=== PATIENT | female | born 1945 | race Caucasian/White ===

== ENCOUNTER → 2017-02-14 | Outpatient (CLI) | payer MEDICARE ==
[~2017-02-14] MED LIST: ASPIRIN PO; CALTRATE PLUS T1 TAB PO; KLONOPIN PO; LIPITOR PO; LISINOPRIL PO; MAXIDE PO; SYNTHROID PO
--- NOTE | ~2017-02-14 | CT6 ---
[facility] A Service of [facility] RADIOLOGY TEXT RESULTS PATIENT: OLEKSANDR PEREZ [facility] UNIT #: [id number] AGE: [address]: Ortiz Silva MD SEX: F ORDER DR: [id number] [facility] [address] [place], [place] [address] [id number] O MR#: [id number] Acc #: [id number] NAME: OLEKSANDR PEREZ : 1945 SEX: F STUDY DATE/TIME: 02/14/2017 14:36 UNIT: [facility] ROOM: STUDY DESCRIPTION: CT Abdomen WWo Cont Attending Physician: Ortiz Silva M.D. Referring Physician: Ortiz Silva M.D. Ordering Physician: Ortiz Silva M.D. Primary Care Physician: Ortiz Silva M.D. MEDICAL IMAGING REPORT This report is preliminary unless electronic signature is present EXAM CT of the abdomen with and without contrast INDICATION Microscopic hematuria. Lower quadrant spasms for years, worse over the last [address] of the abdomen was performed before and after the administration of IV contrast using multiphase protocol. Coronal and sagittal reformatted images were obtained. This CT exam was performed with one or more of the following radiation dose reduction techniques: automatic exposure control, adjustment of mA and/or kV according to patient size, and iterative reconstruction. COMPARISON STUDIES There are no comparison studies available. FINDINGS There is some mild interstitial thickening and ground glass change in the lung bases, which is nonspecific. It may represent some mild edema. There is a micronodule in the right middle lobe measuring 4 mm. This can be followed in 6-12 months to document stability. There has been a previous cholecystectomy. The liver is unremarkable. The spleen is unremarkable. Noncontrast evaluation of the kidneys demonstrates vascular calcifications. No definite renal stone, however. There is no evidence for solid renal mass. There is no hydronephrosis. There is mild ectasia of the infrarenal abdominal aorta. The adrenal glands are unremarkable. The pancreas is unremarkable. Also noted on the arterial phase is STS. 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 Correlate for any claudication symptoms. The bone windows are unremarkable. IMPRESSION 1. There is no definite renal stone. There are some renal vascular calcifications present. 2. No evidence for renal mass or hydronephrosis. 3. Ectasia of the infrarenal abdominal aorta. 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 Correlate with any symptoms of claudication. Vascular surgery consultation can also be considered. 4. Tiny 4 mm micronodule in the base of the right middle lobe is nonspecific and could be followed in 6-12 months to document stability given the absence of any prior studies. Dictated by... Keyshawn Mayen M.D. THIS IS AN ELECTRONICALLY VERIFIED REPORT Keyshawn Mayen M.D. at 02/15/2017 7:22 PM Fran TD: 02/15/2017 17:34 JOB #: [id number] MEDICAL IMAGING REPORT Page 1 of 1 COPY
[2017-02-14 15:21] LABS: POC - CREATININE 0.75 mg/dL (0.44-1.03); POC - GFR >60.0 mL/min (>60)
== END | disposition home or self-care (01) ==
LOC: CCAT 13:00
PROVIDERS: Internal Medicine
DX: R31.29 Other microscopic hematuria (principal); I70.1 Atherosclerosis of renal artery; I77.811 Abdominal aortic ectasia; I74.8 Embolism and thrombosis of other arteries; R91.1 Solitary pulmonary nodule
CPT/HCPCS: 74170; 82565; Q9967

== ENCOUNTER → 2017-03-29 | Outpatient (CLI) | payer MEDICARE ==
--- NOTE | ~2017-03-29 | US37 ---
[facility] A Service of [facility] RADIOLOGY TEXT RESULTS PATIENT: OLEKSANDR PEREZ LOCATION: [place] : 44 UNIT #: [id number] AGE: [address]: Leti Chong MD SEX: F ORDER DR: [id number] [facility] [address] [place], [place] [address] [id number] O MR#: [id number] [facility] #: [id number] NAME: OLEKSANDR PEREZ : 1945 SEX: F STUDY DATE/TIME: 03/29/2017 16:24 UNIT: US ROOM: STUDY DESCRIPTION: US Carotid W/Doppler Bilateral Attending Physician: Leti Chong M.D. Referring Physician: Leti Chong M.D. Ordering Physician: Leti Chong M.D. Primary Care Physician: Ortiz Silva M.D. MEDICAL IMAGING REPORT This report is preliminary unless electronic signature is present EXAM Bilateral carotid duplex, 03/29/2017 HISTORY Carotid bruit. FINDINGS There is patent flow seen throughout the right common carotid, internal carotid, and external carotid arteries. There is some very minimal diffuse, homogeneous, plaque seen in the right common carotid artery. At the right carotid bifurcation, there is some more heterogeneous, irregular-appearing plaque. The right common carotid artery peak velocity is 78 cm/sec. The right internal carotid artery peak systolic/end-diastolic velocities are: Proximal 53/11 cm/sec, mid 60/11 cm/sec, distal 59/14 cm/sec. The right external carotid artery peak velocity is 79 cm/sec, and vertebral artery 39 cm/sec. The right ICA/CCA ratio is 0.8 There is patent flow seen throughout the left common carotid, internal carotid, and external carotid arteries. The left common carotid artery at its proximal aspect has a large focal heterogeneous and echogenic plaque. The left carotid bifurcation also has a heterogeneous and irregular plaque. The left common carotid artery peak velocity is 82 cm/sec. The left internal carotid artery peak systolic/end-diastolic velocities are: Proximal 81/10 cm/sec, mid 86/23 cm/sec, distal 91/16 cm/sec. The left external carotid artery has a peak velocity of 100 cm/sec and vertebral artery 28 cm/sec. The left ICA/CCA ratio is 1.1. IMPRESSION 1. The right carotid artery has mild atherosclerosis, which is not hemodynamically significant by duplex criteria (less than 50%). 2. The left carotid artery has mild atherosclerosis, which is not STS. [facility] A Service of [facility] RADIOLOGY TEXT RESULTS PATIENT: OLEKSANDR PEREZ LOCATION: [facility] #: [id number] : 43 UNIT #: [id number] AGE: [address]: Leti Chong MD SEX: F ORDER DR: hemodynamically significant by duplex criteria (less than 50%). 3. Vertebral flow is antegrade bilaterally. Dictated by... Lexx Larsen M.D. THIS IS AN ELECTRONICALLY VERIFIED REPORT Lexx Larsen M.D. at 04/03/2017 7:12 AM Nrei TD: 03/29/2017 23:21 JOB #: [id number] MEDICAL IMAGING REPORT Page 1 of 1 COPY
[2017-03-29 17:45] LABS: POC - CREATININE 1.09 mg/dL (0.44-1.03)
== END | disposition home or self-care (01) ==
LOC: CGUS 15:09
PROVIDERS: Surgery Vascular Surgery
DX: R09.89 Other specified symptoms and signs involving the circulatory and respiratory systems (principal); I65.23 Occlusion and stenosis of bilateral carotid arteries; I74.10 Embolism and thrombosis of unspecified parts of aorta; E78.00 Pure hypercholesterolemia, unspecified; I10 Essential (primary) hypertension
CPT/HCPCS: 82565; 93880

== ENCOUNTER → 2017-04-02 | Outpatient (CLI) | payer MEDICARE ==
--- NOTE | ~2017-04-02 | CT20 ---
[facility] A Service of [facility] RADIOLOGY TEXT RESULTS PATIENT: OLEKSANDR PEREZ LOCATION: [facility] : 43 UNIT #: [id number] AGE: [address]: Leti Chong MD SEX: F ORDER DR: [id number] [facility] [address] [place], [place] [address] [id number] O MR#: [id number] [facility] #: [id number] NAME: OLEKSANDR PEREZ : 1945 SEX: F STUDY DATE/TIME: 04/02/2017 12:03 UNIT: [facility] ROOM: STUDY DESCRIPTION: CT Angio Lower Ext Cody Attending Physician: Leti Chong M.D. Referring Physician: Leti Chong M.D. Ordering Physician: Leti Chong M.D. Primary Care Physician: Ortiz Silva M.D. MEDICAL IMAGING REPORT This report is preliminary unless electronic signature is present EXAM CT angiogram of the abdomen and pelvis with bilateral lower extremity runoff. INDICATION Bilateral leg numbness and tingling for one year. This is more pronounced on the right. TECHNIQUE Axial CT images were obtained from the dome of the diaphragm through the lower extremities following the administration of intravenous contrast material. Following this, 3-D reformatted images were obtained. This CT exam was performed with one or more of the following radiation dose reduction techniques: automatic exposure control, adjustment of mA and/or kV according to patient size, and iterative reconstruction. FINDINGS Background emphysematous changes are seen with some mild fibrotic changes also noted at the lung bases. Ulcerated plaque is seen within the descending thoracic aorta. There are also coronary artery calcifications. This patient has some mild narrowing at the origin of the celiac axis and some additional mild narrowing is noted at the origin of the superior mesenteric artery. Both vessels remain patent. There are single renal arteries bilaterally with some narrowing suspected at the origin of the left renal artery, although again favored to be relatively mild. Atherosclerotic plaque becomes more confluent within the infrarenal segment before there is an aortic occlusion seen just distal to the origin of the inferior mesenteric artery. The common iliac arteries are occluded bilaterally. Patient does have reconstitution of the internal iliac arteries bilaterally. There is also reconstitution of the external iliac arteries bilaterally but they STS. [facility] A Service of [facility] RADIOLOGY TEXT RESULTS PATIENT: OLEKSANDR PEREZ LOCATION: [facility] : 43 UNIT #: [id number] AGE: [address]: Leti Chong MD SEX: F ORDER DR: are extremely small in caliber. Patient has some prominent collateral flow from the epigastric system. Eccentric calcified plaque is seen within the common femoral arteries bilaterally. Right profunda femoris artery is patent. There is probably some mild multifocal disease involving the proximal right superficial femoral artery but it does remain patent, again, overall is fairly small in caliber. Additional eccentric plaque is seen within the right popliteal artery, although it does appear to remain patent. There is three-vessel runoff to the right foot. Some additional eccentric plaque is seen involving the proximal left superficial femoral artery, again, which is small in caliber. It does remain patent, as is the left popliteal artery which also demonstrates some plaque, and there is three-vessel runoff to the left foot. There is some reflux of contrast material seen into the hepatic veins which can be associated with right-sided heart failure. Liver is unremarkable as are the spleen and proximal small bowel, adrenal glands appear within normal limits, as is the pancreas. There is some dilatation of the common bile duct measuring up to about 1.2 cm. Correlation with liver function tests is suggested. There is some areas of cortical thinning seen within the left kidney which appears relatively atrophic when compared to the contralateral side, likely reflecting sequela of prior insults. No adenopathy is seen within the abdomen. Uterus is surgically absent. No free fluid or adenopathy is identified within the pelvis. No aggressive osseous abnormalities are seen. IMPRESSION 1. 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 The patient does have reconstitution of both the internal and external iliac arteries bilaterally but they are small in caliber. 2. The patient probably does have some mild multifocal disease involving the proximal right superficial femoral artery. I think overall it is small in caliber, although it remains patent and the patient is noted to have three-vessel runoff to the right foot. 3. As on the contralateral side, there is atherosclerotic involvement in a multifocal distribution involving the proximal left superficial femoral artery. Again, it remains patent and there is three-vessel runoff to the left foot. 4. Patient is noted to have some atherosclerotic involvement seen at the origins of the visceral vessels resulting in mild narrowing at the origins of the celiac axis and superior mesenteric artery. There are single renal arteries bilaterally, both of which are favored to have some jryn-st-wirwdkjf disease, left greater than right. Left kidney also appears somewhat atrophic when compared to the right side which may reflect the sequela of prior insults. [facility] A Service of [facility] RADIOLOGY TEXT RESULTS PATIENT: OLEKSANDR PEREZ LOCATION: [facility] : 43 UNIT #: [id number] AGE: [address]: Leti Chong MD SEX: F ORDER DR: 5. Patient does have some dilatation of the common bile duct measuring up to 1.2 cm. Potentially, this is postcholecystectomy in nature. Certainly correlation with liver function tests is suggested. Please see the body of the report for any other additional incidental findings. Dictated by... Cheryle Rivera M.D. THIS IS AN ELECTRONICALLY VERIFIED REPORT Cheryle Rivera M.D. at 04/03/2017 4:44 PM AFF/hunter TD: 04/03/2017 15:17 JOB #: [id number] MEDICAL IMAGING REPORT Page 1 of 1 COPY
[2017-04-02 11:31] LABS: POC - CREATININE 1.19 mg/dL (0.44-1.03)
== END | disposition home or self-care (01) ==
LOC: CCAT 09:47
PROVIDERS: Surgery Vascular Surgery
DX: R20.0 Anesthesia of skin (principal); R20.2 Paresthesia of skin; I74.10 Embolism and thrombosis of unspecified parts of aorta; E78.00 Pure hypercholesterolemia, unspecified; I10 Essential (primary) hypertension; R09.89 Other specified symptoms and signs involving the circulatory and respiratory systems; I70.202 Unspecified atherosclerosis of native arteries of extremities, left leg; I77.1 Stricture of artery; K83.8 Other specified diseases of biliary tract; Z90.49 Acquired absence of other specified parts of digestive tract
CPT/HCPCS: 73706; 74174; 82565; 96360; 96361; Q9967

== ENCOUNTER → 2017-05-10 | Outpatient (CLI) | payer MEDICARE ==
--- NOTE | ~2017-05-10 | TH ---
Unit #: [id number] #: [id number] Patient: OLEKSANDR PEREZ [id number] [address] [address] [id number] O MR#: [id number] NAME: OLEKSANDR PEREZ : 1945 SEX: F STUDY DATE/TIME: UNIT: [facility] ROOM: STUDY DESCRIPTION: Nuclear Study Attending Physician: Carmita Mike M.D. Referring Physician: Carmita Mike M.D. Primary Care Physician: Ortiz Silva M.D. CARDIOLOGY REPORT EXAM Lexiscan Cardiolite Stress Test - Nuclear Portion PROCEDURE Using technetium 99m labeled Cardiolite, rest and stress SPECT images were obtained. Multiple SPECT images were obtained in various views including horizontal and vertical long axis and short axis views of the left ventricle. Images were obtained by gated SPECT method. Patient was administered 11.1 mCi of Cardiolite at rest. Patient was administered 33.2 mCi of Cardiolite after Lexiscan infusion was completed. On the stress images there is normal perfusion noted. The rest images show normal perfusion. Comparing rest and stress images, there is no stress-induced ischemia noted. The left ventricular ejection fraction is calculated to be 71%. There is no focal wall motion abnormality seen. The left ventricular size is small. CONCLUSION 1. No stress-induced ischemia noted. 2. The left ventricular ejection fraction is calculated to be 71%. 3. There is no focal wall motion abnormality seen. 4. The left ventricular size is small. 5. Normal Lexiscan Cardiolite stress test. Dictated by... Nav Cabrera TD: 05/11/2017 06:47 JOB #: [id number] Unit #: [id number] #: [id number] Patient: OLEKSANDR PEREZ CARDIOLOGY REPORT Page 1 of 1 X Carmita Mike MD CARDIOLOGY REPORT
--- NOTE | ~2017-05-10 | ST ---
Unit #: [id number] #: [id number] Patient: OLEKSANDR PEREZ [id number] [address] [address] [id number] O MR#: [id number] NAME: OLEKSANDR PEREZ : 1945 SEX: F STUDY DATE/TIME: UNIT: [facility] ROOM: STUDY DESCRIPTION: Stress Test Attending Physician: Carmita Mike M.D. Referring Physician: Carmita Mike M.D. Primary Care Physician: Ortiz Silva M.D. CARDIOLOGY REPORT EXAM Lexiscan Cardiolite Stress Test DESCRIPTION Baseline EKG - sinus bradycardia, heart rate 54 beats per minute, mild left atrial abnormality, poor R wave progression. Lexiscan is a 4 minute test with Lexiscan being injected within the first minute followed by Cardiolite. EKG during the test was equivocal to baseline. No acute ischemic changes. Patient had no complaints of chest pain, palpitations or dizziness. Had increased shortness of breath and fatigueness which resolved in recovery phase. Maximum heart rate response was 80 beats per minute with a maximum blood pressure response of 136/69 mmHg. Cardiolite was injected after Lexiscan within the first minute of the test. Radionuclide test pending. Please correlate with nuclear images. Dictated by... Vandana Patel A.P.R.N. for Nav Cabrera/hernandez TD: 05/10/2017 11:35 JOB #: [id number] CARDIOLOGY REPORT Page 1 of 1 X Vandana Patel APRN CARDIOLOGY REPORT
== END | disposition home or self-care (01) ==
LOC: CNUC 08:15
DX: Z01.810 Encounter for preprocedural cardiovascular examination (principal); R06.09 Other forms of dyspnea
CPT/HCPCS: 78452; 93017; A9500; J2785